=== PATIENT | male | born 1965 | race Caucasian/White ===

== ENCOUNTER 2024-06-15 20:08 | Inpatient (IN) | payer OTHER, SELFPAY ==
[2024-06-15 17:19] VITALS: BP 145/96
--- NOTE | 2024-06-15 18:31 | ED.GENMED ---
History of Present Illness
General
Chief Complaint: Abnormal Lab Value
Source: patient and physician
Time Seen by Provider: 06/15/24 18:20
History of Present Illness
History of Present Illness:
59-year-old male with past medical history of hypertension, previous prostate cancer presenting to the emergency department at the request of his primary care provider to be further evaluated and likely admitted for concerns for
choledocholithiasis/cholecystitis. Patient started having reflux-like symptoms this past with symptoms continuing, had outpatient blood work and ultrasound today which showed multiple gallstones and sludge within the gallbladder combined
with abnormal liver function tests. Patient endorses some mild nausea currently but states it is very tolerable and does not have any pain at present. Denies any fevers, chills, rigors, bowel changes or urinary symptoms. No other concerns
presently.
Past History
Past History
ED Past Medical History: HTN and Other (Osteoarthritis)
ED Past Surgical History: Appendectomy and Orthopedic (Right knee)
Social History
Tobacco: Non-smoker
Alcohol: Occasional
Drug: None
Personal:
Living: with family
Employment: Employed
Review of Systems
Review of Systems
All Other Systems: ROS reviewed and negative except as documented in HPI and ROS
Phy Exam
Physical Exam
Physical Exam:
GENERAL: Alert , in no apparent distress
EYE: clear conjunctiva b/l
HEAD: NCAT
ENT: mmm.
CARDIAC: Regular rate and rhythm .
LUNGS: Clear breath sounds bilaterally, no acute respiratory distress, no wheezes/rales/rhonchi
ABDOMEN: Soft, mild right upper quadrant tenderness, no r/g, no cvat
NEUROLOGICAL: Alert and oriented
SKIN: Warm and dry, skin intact.
MUSCULOSKELETAL: well perfused.
PSYCH: Normal and appropriate interaction.
Scores
Heart Failure Risk
Heart Failure Risk Score: Not Applicable
Heart Score for Chest Pain Patients
STEMI patient?: Not applicable
Withdrawal Assessment of Alcohol
Withdrawal Assessment Completed?: Not applicable
Course
Orders/Labs/Results
Orders:
Orders
06/15/24 18:29
Electrocardiogram (*1) Urgent
Reason for Study: PreOp
EKG- Treatment ONCE
06/15/24 18:31
LevoFLOXacin 750 MG/150 ML [Levaquin] 750 mg in 150 ml IV NOW
MetroNIDAZOLE 500 MG/100 ML [Flagyl 500 mg] 100 ml IV NOW
06/15/24 19:16
Admit/Transfer Patient As Directed
Co-Sign Provider:
Level of Care: Inpatient admission
Assign to:: Medical/Surgical
Physician / Group: Brandan
Diagnosis: Choledocholithiasis
Reason for Hospitalization: IV abx
Expected length of stay greater than two midnights?: Yes
ELOS- Estimated Length of Stay in days: 3
I certify the patient meets the requirements for IP care: Yes
PRN Pain Medication Management As Directed
May give lesser potent ordered pain med per pt: Yes
preference::
Protocol:: Medication orders for pain may be administered in a
manner that supports deferring to patient preference
when the pt is:
- Requesting an ordered lesser potent pain medication.
Least to most potent pain medications are defined
as: acetaminophen < NSAID < tramadol < opioids
(morphine, oxycodone, hydromorphone).
- Requesting a lesser dose of the same medication IF
ORDERED.
- Requesting a less intrusive route of administration
if both routes are prescribed by the provider (PO <
IV).
06/15/24 19:19
ABO2 Urgent
BBK Wristband Number:
Associate notified that ABO2 has been ordered: [id number]
Date: 06/15/24
Time: 19:41
Vascular Ultrasound Technician ID: [id number]
Code Status As Directed
Resuscitation Status: Full Code
PTT Urgent
Prothrombin Time Urgent
06/15/24 19:42
Type+Screen Urgent
BBK Wristband Number:
Vital Signs
Initial and Last Documented VS:
Initial Vital Signs
Temp Pulse Resp BP Pulse Ox
99.1 F 84 18 145/96 99
06/15/24 17:19 06/15/24 17:19 06/15/24 17:19 06/15/24 17:19 06/15/24 17:19
Last Documented Vital Signs
Temp Pulse Resp BP Pulse Ox
99.1 F 84 18 145/96 99
06/15/24 17:19 06/15/24 17:19 06/15/24 17:19 06/15/24 17:19 06/15/24 17:19
MDM/Problems Addressed
Differential Diagnosis Includes:
Cholecystitis, choledocholithiasis, gallstone pancreatitis, considered a ascending cholangitis however patient is without fever and has normal white blood cell count
MDM/Problems Addressed:
59-year-old male presenting to the ER for evaluation of abnormal liver function tests and ultrasound showing gallstones, primary care provider concern for acute cholecystitis/choledocholithiasis. Patient symptoms currently under control. Liver
function tests significantly deranged, ultrasound reviewed. Based off presentation and lab findings I have low suspicion for choledocholithiasis. Will notify hospitalist team for admission. GI and general surgery to consult.
*Pulse Oximetry
Patient hypoxic: no
*Critical Care Note
Total Time (30-74mins, 75-104mins- exclusive of procedures): Not Applicable
Data Reviewed
Review of Other/Old Records Reveals: Labs, Records and Radiology Studies
Patient Management
Discussion with other providers: Hospitalist and [employer] Worker
Escalation/DeEscalation of care consider admission/obs:
Hospitalist team accepts for admission. GI and general surgery aware. Levaquin/Flagyl ordered for antibiotic coverage. Patient does have a penicillin allergy.
ED Attending Note
-
Portions of this chart may have been created with voice recognition software.� Occasional wrong word or��sound alike� substitutions may have occurred due to the inherent limitations of voice recognition software.
Discharge Plan
Departure
Patient Disposition: Admit
Date of Disposition: 06/15/24
Time of Disposition: 18:31
Presentation/result/management discussed w/ accepting MD/DO: Hospitalist
Discharge Problem:
Choledocholithiasis with acute cholecystitis
Prescriptions:
No Action
propranolol 60 mg Capsule,Extended Release 24 Hr
60 mg PO DAILY
ascorbic acid (vitamin C) [Vitamin C] 500 mg Tablet
500 mg PO DAILY
ibuprofen [Advil] 200 mg Tablet
600 mg PO Q6HPRN PRN (Reason: mild pain/fever)
loratadine [Claritin] 10 mg Tablet
10 mg PO DAILYPRN PRN (Reason: allergies)
rosuvastatin 10 mg Tablet
10 mg PO DAILY
PreserVision AREDS 4,296 mcg-226 mg-90 mg Capsule
2 cap PO DAILY
omega 9-ogj-yki-fish oil [Fish Oil] 1,000 (120-180) mg Capsule
1 cap PO DAILY
Referrals:
Delroy Newman CRNP [Family Provider] -
Interventions
Interventions:
*Risk Screen - Suicide Last Done: 06/15/24 17:19
*General Assessment Last Done: 06/15/24 17:19
*Neglect/Abuse Screening Last Done: 06/15/24 17:19
*ED COVID-19 Vaccine History Last Done: 06/15/24 17:19
Discharge Date and Time
Print Language: AMERICAN
[2024-06-15] MEDS: FLAGYL 500 MG 100 IV (19:19)
--- NOTE | 2024-06-15 19:34 | HPS.HSE ---
Addendum entered and electronically signed by Marcelo Gipson DO 06/15/24 20:17:
Patient seen and examined independently. Agree with findings and plan as set forth by Jenny Langley PA-C.
Patient is a 59y M with PMH significant for hypertension and prostate cancer who presents to ED c/o one week of abdominal discomfort. Patient states that symptoms started as 'heartburn' or 'reflux' and were similar - if more severe - compared to
symptoms he has had in the past. He had a few episodes of non-bloody emesis. He states that he restricted himself to a bland diet and his discomfort gradually improved. However, his family noted in the past 2 days or so that his eyes appeared
yellowed / jaundiced and patient presented to the ED for further evaluation. He denies any fevers / chills. He has no significant pain / discomfort at present.
Ass:
Choledocholithiasis +/- Acute Cholecystitis
Benign Hypertension
Migraine Headaches
h/o Prostate Cancer
Plan:
Admit for further evaluation and treatment.
Abnormal LFTs including elevated bili / alk phos.
Abd US shows only stones / sludge without discreet wall thickening / pericholecystic fluid / etc.
Supportive care, NPO, pain control, antiemetics.
MRCP in AM for further evaluation.
Surgery and GI consulted for additional recommendations.
Continue empiric abx for now.
Original Note:
Family Physician
-
Family Physician: DREAD Law
Chief Complaint
-
Jaundice
History of Present Illness
Patient is a 59 y/o male past medical history of hypertension, hyperlipidemia, migraine headache and prostate cancer who presents with jaundice. Patient reports about a week ago he developed increased reflux which was associated with a few episodes
of vomiting. He reports associated increased abdominal bloating but denies any significant abdominal pain. His daughter noted his to be jaundice the other day and we was seen at an urgent care. He had a follow-up visit with his PCP today who sent
him for lab work and an abdominal ultrasound. Blood work revealed elevated LFTS and Abd US revealed a gallstone with gallbladder sludge associated with extrahepatic biliary duct dilation. Patient denies any fevers, sweats or chills.
Medical History
Past Medical History
Past Medical History: Reports Other
Additional Past Medical History:
Essential Hypertension
Hyperlipidemia
Migraine Headache
Nephrolithiasis
Prostate Cancer
Past Surgical History: Reports Other
Additional Past Surgical History:
Right Knee Surgery
Appendectomy
Prostatectomy
Laser Lithotripsy
Social History
Tobacco: Non-smoker
Alcohol: Other (Rare alcohol consumption)
Family History
Family History: Not pertinent
Allergies / Home Medications
Allergies reflects when Allergies were last updated in [facility].
Home Medications with original date entered in [facility]
Allergy/Medication List:
Allergies
Allergy/AdvReac Type Severity Reaction Status Date / Time
NKA - No Known Allergies Allergy Mild Unknown Uncoded 06/15/24 17:21
Home Medications
ascorbic acid (vitamin C) 500 mg tablet (Vitamin C) 500 mg PO DAILY 06/15/24
ibuprofen 200 mg tablet (Advil) 600 mg PO Q6HPRN PRN mild pain/fever 06/15/24
loratadine 10 mg tablet (Claritin) 10 mg PO DAILYPRN PRN allergies 06/15/24
omega 5-xrl-xfp-fish oil 1,000 mg (120 mg-180 mg) capsule (Fish Oil) 1 cap PO DAILY 06/15/24
propranolol 60 mg capsule,24 hr,extended release 60 mg PO DAILY 06/15/24
rosuvastatin 10 mg tablet 10 mg PO DAILY 06/15/24
vitamins A,C,O-gbsw-cxlqyq 4,296 mcg-226 mg-90 mg capsule (PreserVision AREDS) 2 cap PO DAILY 06/15/24
Review of Systems
-
A 12 point ROS was completed and negative except as noted: Yes
Constitutional: Denies Fever
Respiratory: Denies Cough or Trouble Breathing
Cardiac: Denies Chest Pain or Palpitations
Physical Exam
Vital Signs
Vital Signs
Temp Pulse Resp BP Pulse Ox
99.1 F 84 18 145/96 99
06/15/24 17:19 06/15/24 17:19 06/15/24 17:19 06/15/24 17:19 06/15/24 17:19
Physical Exam
General: Comfortable and Conversant
HEENT: Moist mucous membranes and Other (Sclera Icteric)
Respiratory: Clear and Non Labored Respirations
Cardiac: S1/S2 and Regular Rhythm
GI: Soft and Non Tender
Rectal: Deferred by Provider
Musculoskeletal: No Clubbing and No Cyanosis
Skin: Warm and Dry
Neuro: Awake, Alert, Oriented and Nonfocal/grossly intact
Psych: Calm
Laboratory Results
-
Laboratory Tests
06/15/24
12:38
WBC 7.7
Hgb 15.4
Hct 46.2
Plt Count 229
Sodium 143
Potassium 4.3
Chloride 102
Carbon Dioxide 30
BUN 16
Creatinine 1.0
Glucose 103 H
Calcium 9.8
Total Bilirubin 5.2 H
AST 370 H
ALT 681 H*
Alkaline Phosphatase 317 H
Total Protein 7.3
Albumin 4.4
Lipase 208
Abdomen US:
Gallstone. Gallbladder sludge.. Extrahepatic biliary dilatation. These findings can be seen with acute cholecystitis. Clinical and laboratory correlation recommended.
Data Reviewed
-
Lab Data: Labs Reviewed by me
Impression/Plan
-
Choledocholithiasis
-Consult GI and Surgery
-Check Abd MRI
-Allow clear liquids tonight, then NPO after midnight for possible procedure tomorrow
-Continue empiric Unasyn
-Recheck LFTs in AM
Essential Hypertension
-Continue propranolol
Hyperlipidemia
-Hold rosuvastatin
Migraine Headache
-Continue propranolol
Hx Prostate Cancer s/p Prostatectomy
DVT Proph:Lovenox
Code Status: Full Code
[2024-06-15 19:36] LABS: INR 0.94; PT 13.1 Sec (11.4-14.6)
[2024-06-15 19:37] LABS: APTT 33.7 Sec (23.4-35.0)
[2024-06-15] MEDS: LEVAQUIN 150 IV (20:47)
--- NOTE | 2024-06-15 23:30 | PTCARENOTE ---
Pt arrived to [facility] from ED, ambulated independently from stretcher to bed. VSS, reports mild pain on either side of abdomen, nausea - PRN IV Zofran provided. Pt oriented to room, call muro within reach. Plan of care reviewed with pt.
Pt reports a penicillin allergy that resulted in hives and itching in the past; pt due to receive IV Unasyn at midnight. STARCH COOKER Aileen Evans notified, IV Unasyn d/c'd and IV Levaquin and IV Flagyl ordered. Pt updated on change in abx.
[2024-06-15 23:33] VITALS: BMI 26.9
[2024-06-15 23:34] VITALS: BP 129/96
[2024-06-15] MEDS: ZOFRAN 4 MG IV (23:37)
[2024-06-15] MEDS: NSS 1000 IV (23:37)
[2024-06-16] MEDS: FLAGYL 500 MG 100 IV ×3 (03:47→21:11)
[2024-06-16 05:48] VITALS: BMI 26.9
--- NOTE | 2024-06-16 06:42 | CON.GI ---
Addendum entered and electronically signed by Lety Lopez DO 06/16/24 09:55:
The patient was seen and examined by me independently in collaboration with the nurse practitioner.
Past medical history/social history/medications/allergies/family history reviewed.
Lab data and imaging data reviewed.
Thomas Cavazos is a 59 y.o. male with history of prostate ca s/p prostatectomy, HTN, HL, YVES, migraines admitted with 1 week of indigestion, nausea, vomiting and mild RUQ abdominal pain after outpatient labs showed significant LFT elevation.
Tbili 5.2, AST 370, ALT 681, alk phos 317 and lipase of 208
Abdominal US: Cholelithiasis. The gallbladder is physiologically distended with fluid and shows moderate sludge, at least 1 stone measuring 1.2 cm. CBD is dilated to 1.2 cm. Hepatomegaly, normal echogenicity.
#Choledocholithiasis with likely mild cholecystitis
-US w/ CBD dilation and Tbili >4 --> high likelihood of choledocholithiasis, recommend proceeding to ERCP
-keep NPO
-IVF, antiemetics, analgesics prn (pain currently very tolerable)
-plan for ERCP today with Dr. Daugherty
-recommend surgical consultation for cholecystectomy evaluation following ERCP
Original Note:
Consultation
-
Date/Time Consultation Requested: 06/15/24 1959
Date/Time Consultation Performed: 06/16/24 0830
Requesting Provider: Jenny Langley PA-C
Performing Provider: DREAD Daigle, Lanie Lopez DO
Reason for Consultation: abdominal pain
Medical History
Chief Complaint / HPI
Chief Complaint: abdominal pain
History of Present Illness:
Pt is a 59yo with hx prostate CA with prior prostatectomy about 4 years ago , HTN, hyperlipidemia, sleep apnea, migraines presents onset of jaundice with increased gerd, nausea, and vomiting. He also admits to attack last week with severe
abdominal pain. He was seen by PCP prior to admission and noted in 06/15 with bili 5.2, AST 370, ALT 681, alk phos 317 and lipase of 208 with normal albumin, platelets and INR. US abd noted with gallstones and GB sludge with extrahepatic biliary
dilatation with concern for acute cholecystitis, right renal cyst and mild Hepatomegaly.
In review with patient he admits to symptoms as above along with dark urine and distant hx GERD but no prior other ' attacks' with abdominal pain similar to last week He denies any wt loss, GPL1 use, dysphagia, diarrhea, constipation or rectal
bleeding. Hx colonoscopy 2 years ago- normal and no prior EGD.
Past Medical History
Past Medical History: Cancer (prostate CA), HTN (white coat syndrome), Hypercholesterolemia and Other (deviated septum, macular degeneration, ED, sleep apnea, vitamin D deficiency, migraines )
Past Surgical History: Orthopedic (arthroscopic knee surgery) and Urological (prostatectomy)
Social History
Tobacco: Non-Smoker
Alcohol: None
Drug: None
Living: With Family (daughter )
Employment: Employed (IT work )
Family History
Family History: Other (father with gallbladder problems and hx colon CA age 70-80)
Allergies / Home Medications
Allergy/AdvReac Type Severity Reaction Status Date / Time
Penicillins Allergy Intermediate Hives Verified 06/15/24 23:43
�Medication �Instructions �Recorded
ascorbic acid (vitamin C) 500 mg 500 mg PO DAILY 06/15/24
tablet (Vitamin C)
ibuprofen 200 mg tablet (Advil) 600 mg PO Q6HPRN PRN mild 06/15/24
pain/fever
loratadine 10 mg tablet (Claritin) 10 mg PO DAILYPRN PRN allergies 06/15/24
omega 3-kzw-nvp-fish oil 1,000 mg 1 cap PO DAILY 06/15/24
(120 mg-180 mg) capsule (Fish Oil)
propranolol 60 mg capsule,24 60 mg PO DAILY 06/15/24
hr,extended release
rosuvastatin 10 mg tablet 10 mg PO DAILY 06/15/24
vitamins A,C,K-vqsj-fqaudg 4,296 2 cap PO DAILY 06/15/24
mcg-226 mg-90 mg capsule
(PreserVision AREDS)
Review of Systems
-
History Source: Patient
Constitutional: Reports Chills (minimal )
EENT: Reports No Symptoms
Respiratory: Reports No Symptoms
Abdomen/GI: Reports Abdominal Pain ('attack' last week wtih increased upper abdominal pain), Nausea and Vomiting
: Reports Dark Urine
Musculoskeletal: Reports No Symptoms
Skin: Reports No Symptoms
Neurological: Reports No Symptoms
Endocrine: Reports No Symptoms
Hematologic/Lymphatic: Reports No Symptoms
Vital Signs
Temp Pulse Resp BP Pulse Ox
97.8 F 77 18 129/96 100
06/15/24 23:34 06/15/24 23:34 06/15/24 23:34 06/15/24 23:34 06/15/24 23:34
Physical Exam
Exam
General: Well Developed and Well Nourished
HEENT: Other (jaundice with icteric sclera )
Cardiac: Regular Rhythm
GI: Soft, Non Distended and Tender (minimal epigastric pain )
Musculoskeletal: No Clubbing and No Cyanosis
Skin: Warm and Dry
Neuro: Awake, Alert and AO x 3
Psych: Calm
Results
PT 13.1 Sec (11.4-14.6) 06/15/24 19:19
INR 0.94 06/15/24 19:19
APTT 33.7 Sec (23.4-35.0) 06/15/24 19:19
Diagnostic Image Results:
06/15/24 US Abdomen Complete/Upper
Gallstone. Gallbladder sludge.. Extrahepatic biliary dilatation. These findings can be seen with acute cholecystitis. Clinical and laboratory correlation recommended.
Simple right renal cysts.
Mild hepatomegaly
Prior GI Procedures:
EGD: none
Colonoscopy: 2 years ago recall normal due repeat after 5 years
Assessment / Plan
-
Pt is a 59yo with hx prostate CA with prior prostatectomy about 4 years ago , HTN, hyperlipidemia, sleep apnea, migraines presents onset of jaundice with increased gerd, nausea, and vomiting. He also admits to attack last week with severe
abdominal pain. He was seen by PCP prior to admission and noted in 4/3 with bili 5.2, AST 370, ALT 681, alk phos 317 and lipase of 208 with normal albumin, platelets and INR. US abd noted with gallstones and GB sludge with extrahepatic biliary
dilatation with concern for acute cholecystitis, right renal cyst and mild Hepatomegaly.
-jaundice/GERD/vomiting
-recent attack with epigastric pain last week.
-increased LFT's
-US with possible cholecystitis with noted gallstones and sludge-extrahepatic duct dilatation
other med problems:
-prostate CA-prostatectomy 4 years ago
-HTN
-hyperlipidemia
-sleep apnea
-migraines
PLAN:
etiology of symptoms with concern for CBD stone with ductal dilatation vs cholecystitis vs other
reviewed with MRI - would be later today
discussed option with patient MRI later today vs proceed with ERCP +/- EUS
pt willing to proceed with GI procedure later today -- will hold MRI
trend labs add D bili
for surgical eval
cont NPO
hold statin
cont abx
hold Lovenox - add compression stockings '
all questions answered
-
-
Thank you for consultation and allowing me to participate in the patient's care. Please call the ultrasonic tester GI physician during the after hours with any questions or concerns.
[2024-06-16 07:00] VITALS: BP 160/99
[2024-06-16 08:30] LABS: Hematocrit 41.4 % (39.0-52.0); Hemoglobin 14.1 g/dL (13.0-18.0); Mean Corp Hgb Conc. 34.1 g/dL (33.0-37.0); Mean Corpuscular Volume 88.1 fL (80.0-94.0); Mean Platelet Volume 9.6 fL (7.4-10.4); Platelet Count 177 10^3/uL (130-400); Red Cell Dist. Width 13.2 % (11.5-14.5); White Blood Cell Count 6.6 10^3/uL (4.8-10.8)
[2024-06-16 09:24] LABS: ALT (SGPT) 581 U/L (0-50); AST (SGOT) 254 U/L (17-59); Albumin 3.8 g/dl (3.5-5.0); Alkaline Phosphatase 305 U/L (38-126); Blood Urea Nitrogen 12 mg/dl (9-20); Carbon Dioxide 27 mmol/L (22-30); Chloride 105 mmol/L (98-107); Direct Bilirubin 1.6 mg/dl (0.0-0.4); Estimated Creatinine Clearance 120 ml/min; Glucose 99 mg/dl (70-99); Sodium 140 mmol/L (135-145); Total Bilirubin 4.5 mg/dl (0.2-1.3); Total Protein 6.4 g/dl (6.3-8.2); eGFR > 60.00
[2024-06-16] MEDS: INDERAL LA 60 MG PO (09:37)
--- NOTE | 2024-06-16 10:30 | W.PN.HOSP.TC ---
Today's Communication/Plan
-
MRI
Add PRN hydralazine
Assessment / Plan
Assessment / Plan
Physical Exam
General: Comfortable and Conversant
HEENT: Moist mucous membranes and Other (Sclera Icteric)
Respiratory: Clear and Non Labored Respirations
Cardiac: S1/S2 and Regular Rhythm
GI: Soft and Non Tender
Rectal: Deferred by Provider
Musculoskeletal: No Clubbing and No Cyanosis
Skin: Warm and Dry
Neuro: Awake, Alert, Oriented and Nonfocal/grossly intact
Psych: Calm
# Jaundice
Patient was feeling mild nausea earlier reflux-like symptoms. Currently he denies nausea, abdominal pain. No fever. No leukocytosis
Blood work showed jaundice with elevated liver enzyme
Ultrasound showed cholelithiasis with gallbladder sludge
He is for MRCP today.
Empiric antibiotic
Appreciate GI and surgery input
#Essential Hypertension
Slightly uncontrolled
-Continue propranolol
Add PRN oral hydralazine
#Hyperlipidemia
-Hold rosuvastatin
#Migraine Headache
No headache
-Continue propranolol
Hx Prostate Cancer s/p Prostatectomy
DVT Proph:Lovenox
Code Status: Full Code
Total time spent to see the patient, examine the patient, review data and lab results, discuss treatment plan with patient, nursing staff around 55 minutes
Anticipated Discharge: > 48 hours
Subjective/Interval History
-
Date of Service: June 16, 2024
he denies abdominal pain or nausea
Objective Data
-
Labs:
Laboratory Results
06/16/24
07:44
WBC 6.6
Hgb 14.1
Hct 41.4
Plt Count 177 D
Sodium 140
Potassium 4.0
Chloride 105
Carbon Dioxide 27
BUN 12
Creatinine 0.8
Glucose 99
Calcium 9.0
Total Bilirubin 4.5 H
AST 254 H
ALT 581 H*
Alkaline Phosphatase 305 H
Vital Signs:
Vital Signs
Temp Pulse Resp BP Pulse Ox
98.4 F 76 21 160/99 99
06/16/24 07:00 06/16/24 07:00 06/16/24 07:00 06/16/24 07:00 06/16/24 07:00
I&O
06/15/24 06/16/24 06/17/24
06:59 06:59 06:59
Intake Total 660 / 660
Balance 660 / 660
--- NOTE | 2024-06-16 10:47 | CON.GS ---
Addendum entered and electronically signed by Slava Reyes MD 06/16/24 11:38:
I saw and examined the patient.
The Analog [employer] Designer's note was reviewed and I agree with the note.
Comment: Clinically well, mild scleral icterus he reports it has improved. Abd nt, soft. Tbili improving. US with sludge/stone and 1.2cm CBD dilation. For MRCP vs ERCP. Will follow. Rec CCY, timing TBD. Briefly discussed with pt.
Original Note:
Medical History
-
Chief Complaint: jaundice, indigestion
History of Present Illness:
Mr Cavazos is a 59 yo male with a h/o prostate ca s/p prostatectomy and GERD who was travelling for work last week when he had an episode of indigestion and severe upper abdominal discomfort after eating which he reports which he attributed to acid
reflux. He notes that after returning home, he didn't feel quite 100% yet and his daughter noticed that his eyes were a bit yellow prompting him to contact his PCP who ordered blood work. His LFT's were abnormal and he was advised to go to the ED
for evaluation. Currently, he denies pain, nausea or vomiting. He feels that his eyes and skin are a bit less jaundiced than previous, but jaundice still present. His abdomen is not tender or distended.
Past Medical History
Past Medical History: Cancer (prostate ), GERD, HTN, Hypercholesterolemia and Other (YVES, migraines)
Past Surgical History: Orthopedic (knee arthroscopy ) and Urological (prostatectomy)
Social History
Tobacco: Non-Smoker
Alcohol: None
Living: With Family
Family History
Family History: Reviewed & Not Pertinent
Allergies / Home Medications
Allergy/AdvReac Type Severity Reaction Status Date / Time
Penicillins Allergy Intermediate Hives Verified 06/15/24 23:43
�Medication �Instructions �Recorded �Confirmed �Type
ascorbic acid (vitamin C) 500 mg 500 mg PO DAILY Supplement 06/15/24 06/15/24 History
tablet (Vitamin C)
ibuprofen 200 mg tablet (Advil) 600 mg PO Q6HPRN PRN mild 06/15/24 06/15/24 History
pain/fever
loratadine 10 mg tablet (Claritin) 10 mg PO DAILYPRN PRN allergies 06/15/24 06/15/24 History
omega 6-dbs-smr-fish oil 1,000 mg 1 cap PO DAILY Supplement 06/15/24 06/15/24 History
(120 mg-180 mg) capsule (Fish Oil)
propranolol 60 mg capsule,24 60 mg PO DAILY Heart 06/15/24 06/15/24 History
hr,extended release Disease/Condition
rosuvastatin 10 mg tablet 10 mg PO DAILY High Cholesterol 06/15/24 06/15/24 History
vitamins A,C,P-ckub-cfhhdl 4,296 2 cap PO DAILY Supplement 06/15/24 06/15/24 History
mcg-226 mg-90 mg capsule
(PreserVision AREDS)
Review of Systems
-
History Source: Patient
All other systems: Negative unless noted
A 10 point review of systems was completed, and was negative except as per HPI.
Physical Exam
Vital Signs
Temp Pulse Resp BP Pulse Ox
98.4 F 76 21 160/99 99
06/16/24 07:00 06/16/24 07:00 06/16/24 07:00 06/16/24 07:00 06/16/24 07:00
06/15/24 06/16/24 06/17/24
06:59 06:59 06:59
Actual Weight 97.579 kg
Body Mass Index (BMI) 26.9
Lab Results
06/16/24 07:44
06/16/24 07:44
WBC 6.6 10^3/uL (4.8-10.8) 06/16/24 07:44
Hgb 14.1 g/dL (13.0-18.0) 06/16/24 07:44
Hct 41.4 % (39.0-52.0) 06/16/24 07:44
Plt Count 177 10^3/uL (130-400) D 06/16/24 07:44
Physical Exam
General: Well Developed and Well Nourished
HEENT: Scleral Icterus
Respiratory: Non Labored Respirations
GI: Soft, Non Tender and Non Distended
Skin: Jaundice
Neuro: Awake and AO x 3
Psych: Calm
Data Reviewed
-
Ultrasound: Image Personally Visualized and interpreted, Report Reviewed by me, Discussed with Physician and Discussed with Patient
Labs: Labs Reviewed by me, Discussed with Physician and Discussed with Patient
Old Records: Reviewed
Assessment / Plan
-
59 yo male with episode of RUQ pain with indigestion about 1 week ago presenting with jaundice. US reviewed with cholelithiasis and some distention with extrahepatic biliary dilatation noted. No leukocytosis. Afebrile with stable vital signs.
Elevated LFT's although bilirubin has trended down from 5.2 to 4.5 since presentation. Findings suspicious for choledocholithiasis. Do not suspect acute cholecystitis.
Gastroenterology following with ERCP planned today
Would recommend eventual cholecystectomy to prevent future recurrence. Timing TBD pending ERCP findings. Outpatient vs later this admission.
--- NOTE | 2024-06-16 13:13 | CM ---
CM reviewed chart, patient seen bedside with significant other, initial assessment completed. Patient resides with his daughter in a multiple story home, no steps to enter. Patient is independent with ADLs/IADLs, denies use of DME, VN, or SNF
history. Patient confirms PCP Delroy Newman, pharmacy [facility], confirms prescription coverage. Patient planned for ERCP today. CM will continue to follow for all discharge planning needs.
Plan; home no needs likely.
[2024-06-16 15:00] VITALS: BP 152/92
[2024-06-16 19:09] VITALS: BP 151/88; BP 152/92
[2024-06-16 19:15] VITALS: BP 140/74
[2024-06-16 20:57] VITALS: BP 153/90
[2024-06-16] MEDS: LEVAQUIN 150 IV (21:11)
--- NOTE | 2024-06-16 21:14 | W.PN.UPDATE ---
Update Note
Progress Note Update
2100 Asked to see pt as he would like to leave tonight.
Pt admitted overnight with jaundice and weakness found to have choledocholithiasis. Pt had ERCP earlier today where one stone was removed from CBD. Cholecystectomy TBD- but likely not until wednesday.
Pt states he feels fine post ERCP. He wishes not to spend weekend in Hospital waiting for surgery. Explained the risks of leaving AMA including but not limited to worsening of liver function test, possible pancreatitis post ERCP, worsening of pain
and/or sepsis and . Explained s/s of pancreatitis and to come back to ER if symptoms should occur. Advised that ideally we would like to follow LFT to make sure they are treading down. Advised that he should call PCP wednesday and get labwork
rechecked. He will call surgeon office wednesday to schedule surgery out patient. Pt agreeable to get HS doses of abx then will go home. AMA paperwork signed.
--- NOTE | 2024-06-16 22:56 | PTCARENOTE ---
Pt arrived back to the floor from ERCP approx around 2014. This RN went to assess pt at 2044 and pt asked if he could be discharged as he knew that he would not be having surgery this weekend if he needed it. This RN advised pt that the [facility] would
still like him to get IV abx and that if he goes home he runs the risk of becoming worse. Pt understood and still asked to be discharged. This RN contacted the SPA DIRECTOR Aileen Evans, to inform her that the pt would like to leave. Aileen FELDER came up to
bedside to discuss the risks of signing out AMA. Pt agreed with the risks and agreed to recieve his 2000 dose of flagyl and levofloxin and then leave. Pt signed AMA form. This RN hung his two abx around 2099. IV abx finished, his IVs were removed
and pt left at 2255.
--- NOTE | 2024-06-17 06:59 | W.DCSUMMARY ---
Discharge Summary
Discharge Data
Date of Admission: 06/15/24
Date of Discharge: 06/16/24
-
Pending Results: No
Hospital Course
59 years old male who presented with 1 week duration of nausea, vomiting, right upper quadrant abdominal pain. He had outpatient blood work that showed elevated liver enzymes and bilirubin. Abdominal ultrasound showed cholelithiasis with moderate
sludge, common bile duct was dilated to 1.2 cm. Patient was admitted to the hospital. He was given IV antibiotic, IV fluid. He had upper endoscopic ultrasound that showed gallstone in the main bile duct. He underwent ERCP with successful removal
of choledocholithiasis, biliary sphincterectomy. The plan was to continue antibiotics, clear liquid diet and following blood work. Patient felt better after the procedure. Patient did not want to stay in the hospital. He was advised against
leaving. Patient signed AMA papers and left despite counseling. He verbalized understanding to potential side effects and expressed wishes to contact his a primary care doctor and surgery office to schedule further care in the outpatient setting.
He remained lucid and fully oriented and hemodynamically stable during his hospital stay, did not have delirium or confusion.
Discharge Plan
-
Patient Disposition: Against Medical Advice
Referrals:
Delroy Newman CRNP [Family Provider] -
Slava Reyes MD [Active] -
Prescriptions:
No Action
propranolol 60 mg Capsule,Extended Release 24 Hr
60 mg PO DAILY
ascorbic acid (vitamin C) [Vitamin C] 500 mg Tablet
500 mg PO DAILY
ibuprofen [Advil] 200 mg Tablet
600 mg PO Q6HPRN PRN (Reason: mild pain/fever)
loratadine [Claritin] 10 mg Tablet
10 mg PO DAILYPRN PRN (Reason: allergies)
rosuvastatin 10 mg Tablet
10 mg PO DAILY
PreserVision AREDS 4,296 mcg-226 mg-90 mg Capsule
2 cap PO DAILY
omega 8-qia-xsy-fish oil [Fish Oil] 1,000 (120-180) mg Capsule
1 cap PO DAILY
Discharge Date and Time
Discharge Date/Time: 06/16/24 22:54
Print Language: URUGUAYAN
== END 2024-06-16 22:54 | disposition left against medical advice (07) | DRG 446 ==
LOC: 4 WEST ACU 20:08
PROVIDERS: Internal Medicine Gastroenterology; Physician Assistant Medical; ADMITTING PHYSICIAN Hospitalist; ATTENDING PHYSICIAN Internal Medicine; CONSULT PHYSICIAN Internal Medicine; EMERGENCY PHYSICIAN Student in an Organized Health Care Education/Training Program; FAMILY PHYSICIAN Nurse Practitioner Family; OTHER PHYSICIAN Surgery
PROC: BD47ZZZ Ultrasonography of Gastrointestinal Tract (ICD-10-PCS; 2024-06-16)
PROC: 0DJ08ZZ Inspection of Upper Intestinal Tract, Via Natural or Artificial Opening Endoscopic (ICD-10-PCS; 2024-06-16)
PROC: 0F798ZZ Dilation of Common Bile Duct, Via Natural or Artificial Opening Endoscopic (ICD-10-PCS; 2024-06-16)
PROC: 0FC98ZZ Extirpation of Matter from Common Bile Duct, Via Natural or Artificial Opening Endoscopic (ICD-10-PCS; 2024-06-16)
DX: K80.70 Calculus of gallbladder and bile duct without cholecystitis without obstruction (principal); I10 Essential (primary) hypertension; G43.909 Migraine, unspecified, not intractable, without status migrainosus; Z85.46 Personal history of malignant neoplasm of prostate; R74.8 Abnormal levels of other serum enzymes; E78.00 Pure hypercholesterolemia, unspecified; Z53.29 Procedure and treatment not carried out because of patient's decision for other reasons
CPT/HCPCS: 36415; 74330; 76000; 76700; 80053; 82248; 83690; 85025; 85027; 85610; 85730; 86850; 86900; 86901; 93005; 99285; C1769